=== PATIENT | female | born 1970 | race Caucasian/White ===

== ENCOUNTER 2016-06-06 16:14 | Emergency (ER) | payer MEDICAID ==
[~2016-06-06] VITALS: Wt 77.0 kg
[2016-06-06] MEDS ORDERED: SODI126M NASAL (17:40)
[2016-06-06] MEDS ORDERED: GUAI473L22 PO (17:40)
--- NOTE | 2016-06-06 17:44 | ERD ---
ER Documentation Chief Complaint Date/Time DATE: 06/06/16 TIME: 17:42 Chief Complaint COUGH X 3 DAYS HPI 46-year-old female complaining of cough 3 days. Patient reports subjective fever last night, but did not check her temperature at home. Her cough is worse at night, she is unable to sleep. Cough is nonproductive. Positive sick contact at home. Denies shortness of breath. Denies abdominal pain, vomiting, diarrhea ROS All systems reviewed and are negative except as per history of present illness. Medications Home Meds Active Scripts Guaifenesin-Codeine Phosphate* (Guaifenesin* AC Cough Syrup) 473 Ml Liquid, 5 ML PO Q4H Y for COUGH, #120 ML Prov:MARTHA RODRIGUEZ. [employer] 06/06/16 Sodium Chloride (Saline Nasal Mist) 126 Ml Mist, 2 SPRAY NASAL Q2H Y for NASAL CONGESTION, #1 BOTTLE Prov:MARTHA RODRIGUEZ. [employer]CH[employer] 06/06/16 PMhx/Soc Medical and Surgical Hx: pt denies Medical Hx, pt denies Surgical Hx Physical Exam Vitals Vital Signs Date Time Temp Pulse Resp B/P Pulse Ox O2 Delivery O2 Flow Rate FiO2 06/06/16 16:21 98.6 109 18 167/93 99 Physical Exam General impression: Well-developed, well-nourished, alert, oriented, in no acute distress Head: Normocephalic, atraumatic. Eyes: PERRL, EOM normal. Conjunctiva not injected. ENT: Nasal mucosa erythematous and swollen. Oral mucosa and oropharynx are normal. Neck: Supple, nontender. No lymphanopathy. No nuchal rigidity. Respiration: Normal respiratory effort. Lungs clear to auscultate bilaterally. No wheezes, rales or rhonchi. Cardiovascular: Regular rate and rhythm. No murmurs or extra heart sounds. Neuro: Mental status normal, speech normal. Skin: Normal turgor. No rash or lesions. Psych: Normal mood and affect. Procedures/MDM Patient is afebrile, in no respiratory distress. Lungs are clear to auscultate. I doubt that patient has pneumonia or bronchitis. Likely patient's symptoms are result of viral upper respiratory infection. Patient appears well, stable for discharge and outpatient management. Medical decision making shared with patient and family. Education provided to patient and family. Patient and family expressed understanding of the plan. Medications on discharge: Saline nasal spray, guaifenesin with codeine. Follow-up: Primary care provider in 2-3 days or return to ED if worse. Departure Diagnosis: Primary Impression: URI (upper respiratory infection) URI type: acute nasopharyngitis (common cold) Qualified Code: J00 - Acute nasopharyngitis Condition: Stable Patient Instructions: Adult Self-Care for Colds [facility] Usted se [place] hecho un examen mdico de control que le indica que no est en kirsty condicin que requiera tratamiento urgente en el Departamento de Emergencia. Un estudio ms profundo y el tratamiento de myrick condicin pueden esperar sin ningn riesgo hasta que usted sea atendida/o en el consultorio de myrick mdico o kirsty cl brianna. Es responsabilidad suya arreglar kirsty jacqui para el seguimiento del madeline. MANEJO DE CONDICIONES NO URGENTES EN EL FUTURO 1) Si usted tiene un mdico de atencin primaria: Usted debera llamar a myrick mdico de atencin primaria antes de venir al departamento de emergencia. Despus de las horas de consultorio, myrick doctor o myrick asociado/a est disponible por telfono. El mdico o enfermero de shanelle en el servicio telefnico puede asesorarle por dio medio para atender el problema, o madeline contrario se puede programar kirsty jacqui. 2) Si usted no tiene un mdico de atencin primaria: Llame al mdico o clnica de referencia que aparece abajo noah las horas de consultorio para hacer kirsty jacqui para que le vean. CLINICAS: [facility] [phone] [facility] [phone] [facility] [phone] [facility] [phone] [facility]. [facility] [phone] [address] [facility]. [phone] [address] Additional Instructions: Llame al doctor MAANA y win kirsty JACQUI PARA DENTRO DE 2-3 BULLARD.Dgale a la secretaria que nosotros le instruimos hacer esta jacqui.Avise o llame si myrick condicin se empeora antes de la jacqui. Regresa aqui si peor o no mejor. MARTHA RODRIGUEZ. SHANEL Jun 06, 2016 17:44
== END 2016-06-06 17:52 | disposition home or self-care (01) ==
LOC: FTE 16:14
DX: J00 Acute nasopharyngitis [common cold] (principal)
CPT/HCPCS: 99283